=== PATIENT | female | born 1985 | race Caucasian/White ===

== ENCOUNTER 2017-08-08 01:20 | Day surgery (SDC) | payer BC ==
--- NOTE | 2017-08-07 23:07 | HISTORY AND PHYSICAL ---
DATE OF ADMISSION: August 08, 2017 CHIEF COMPLAINT Abnormal bleeding. HISTORY OF PRESENT ILLNESS Patient is a 31-year-old 4, para 1, with abnormal bleeding and postcoital bleeding which began many months ago. She had had some conservative management, but had not changed in the intensity or frequency of the bleeding. Says it has been ongoing for several months. It gradually has worsened over the past several months, aggravated by obesity and relieved by nothing. The patient had a saline infusion sonogram, which they noted a thickened endometrial lining. After discussions of risks and alternatives, desired a diagnostic hysteroscopy with possible polypectomy and fractional dilatation and curettage. MEDICATIONS * Celexa 20 mg. ALLERGIES SKELAXIN. REVIEW OF SYSTEMS GENITOURINARY: Per HPI. GENERAL, SKIN, EYES, EARS, NOSE, MOUTH, NECK, RESPIRATORY, CARDIOVASCULAR, GASTROINTESTINAL, MUSCULOSKELETAL, NEUROLOGIC, and PSYCHIATRIC: All reviewed and noncontributory. PAST SURGICAL HISTORY * ACL repair in 2008. FAMILY HISTORY Mother with hypertension SOCIAL HISTORY She does not drink alcohol. She is an everyday smoker. 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 PHYSICAL EXAMINATION VITAL SIGNS: BP 108/70, temp 99.3, weight 264. CONSTITUTIONAL: Well nourished, overweight female in no distress. SKIN: Without rash or lesions. NECK: Supple without masses. HEART: Regular rate and rhythm. LUNGS: Clear to auscultation bilaterally. ABDOMEN: Soft, nontender, nondistended. Bowel sounds positive. EXTREMITIES: Nontender. No edema. PSYCHIATRIC: Alert and oriented times three. Normal mood and affect. PELVIC: Normal external female genitalia. Well-estrogenized vaginal lining. No abnormal discharge or lesions. Cervix normal appearance. Uterus is 7 x 6 cm. No adnexal masses or tenderness. ASSESSMENT AND PLAN Abnormal bleeding, postcoital bleeding. Plan to perform diagnostic hysteroscopy with possible polypectomy and fractional dilatation and curettage. CYRUSD
[~2017-08-08] VITALS: Ht 170.2 cm; Wt 118.4 kg
[~2017-08-08 01:20] MED LIST: AUG500 PO; CITA-145 PO; IBUP200C71 PO; NAPR220C12 PO; PER PO; TOBROD OU
[2017-08-08 06:03] LABS: PLATELET COUNT, AUTOMATED 248 K/uL (150-450)
[2017-08-08 06:30] VITALS: BP 137/81
[2017-08-08] MEDS ORDERED: METHYLERGONOVINE MAL 0.2MG/ML ONE (06:49)
[2017-08-08] MEDS ORDERED: fentaNYL CITR 100 MCG/2 ML AMP ONE ×2 (07:07→08:09)
[2017-08-08] MEDS ORDERED: DEXAMETHASONE SOD PHOS 10MG/ML ONE (07:08)
[2017-08-08] MEDS ORDERED: ONDANSETRON 4 MG/2 ML VIAL ONE (07:08)
[2017-08-08] MEDS ORDERED: NS 0.9% 20 ML SDV 20 ML ONE (07:08)
[2017-08-08] MEDS ORDERED: LIDOCAINE MPF 1% 5 ML VIAL ONE (07:08)
[2017-08-08] MEDS ORDERED: PROPOFOL EMUL(*) 10MG/ML 20 ML 20 ML ONE (07:08)
[2017-08-08] MEDS ORDERED: LIDOCAINE/SOD BICARB 8.4% SYR ID ONE (07:50)
[2017-08-08] MEDS ORDERED: FAMOTIDINE 20 MG TAB PO ONE (07:50)
[2017-08-08] MEDS ORDERED: NORMOSOL R SOLN(*) 1000 ML BAG 1,000 ML IV PRN (07:50)
[2017-08-08] MEDS ORDERED: HYDROmorphone HCL 2 MG TAB PO ONE (07:50)
[2017-08-08] MEDS ORDERED: MIDAZOLAM 2 MG/2 ML VIAL IVP PRN (07:50)
[2017-08-08] MEDS ORDERED: cefOXitin/DEX(*) 2GM/50ML PREM 50 ML IVPB ONE (07:50)
[2017-08-08] MEDS ORDERED: CELECOXIB 200 MG CAP PO ONE (07:50)
[2017-08-08] MEDS ORDERED: LR(*) 1000 ML BAG 1,000 ML IV ONE (07:54)
[2017-08-08] MEDS ORDERED: METOCLOPRAMIDE 10 MG/2 ML SDV IVP PRN (07:55)
[2017-08-08] MEDS ORDERED: HYDROmorphone HCL 2 MG TAB PO PRN (07:55)
[2017-08-08] MEDS ORDERED: HYDR2TAB4 PO (07:56)
[2017-08-08] MEDS ORDERED: IBUP800T37 PO (07:56)
--- NOTE | 2017-08-08 07:58 | OB/GYN Discharge Summary ---
Discharge Summary Reason for Hosp/Final Diag: (1) Status post hysteroscopic polypectomy Hospital Course & Plan: HSCOPE POLYPECTOMY FRACTIONAL D AND C PERFORMED NO COMPLICATIONS Lates Vital Signs Vital Signs Date Time Temp Pulse Resp B/P (MAP) Pulse Ox O2 Delivery O2 Flow Rate FiO2 08/08/17 06:30 97.4 85 16 137/81 (99) 94 Room Air Weight (Pounds): 261 Result Diagram: 08/08/17 0558 Condition: Improved Discharge: Home, Self Detention Meds Active Scripts Hydromorphone Hcl (HYDROMORPHONE HCL) 2 Mg Tablet, 2-4 MG PO Q4H for PAIN, #20 TAB 0 Refills Prov:MESFIN MEANS MD 08/08/17 Ibuprofen (IBUPROFEN) 800 Mg Tablet, 1 TAB PO Q8H, #30 TAB 0 Refills Take with food every 8 hours. Prov:MESFIN MEANS MD 08/08/17 Reported Medications Naproxen Sodium (ALEVE) 220 Mg Capsule, 440 MG PO HS, CAPSULE 08/06/17 Ibuprofen (IBUPROFEN) 200 Mg Capsule, 1 CAP PO BID, CAPSULE 08/06/17 Citalopram Hydrobromide (CITALOPRAM HBR) 20 Mg Tablet, 20 MG PO QDAY, #5 TAB 08/06/17 Discontinued Reported Medications Oxycodone/Acetaminophen (OXYCODONE/ACETAMINOPHEN 5MG/325 MG) 5 Mg/325 Mg Tab, 1 - 2 TAB PO Q4-6H Y, #20 03/10/12 Tobramycin/Dexamethasone (Tobradex Eye Drops) 5 Ml Drops.susp, 1 - 2 DROP OU Q4- 6H Y 03/10/12 Amoxicillin/Clavulanate K (Augmentin) 500 Mg Tab, 500 MG PO BIDBS, #20 03/10/12 Follow up with: Dr. Means [phone] Follow up in: 2 wks PO Discharge Diet: As Tolerates Discharge Activity: Pelvic Rest Copies to: MESFIN MEANS MD, JOHN MD August 08, 2017 07:58
--- NOTE | 2017-08-08 08:01 | Post Operative Note ---
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
[2017-08-08 09:00] VITALS: BP 111/68
[2017-08-08] MEDS ORDERED: IBUPROFEN 800 MG TAB PO SCH (09:00)
[2017-08-08 09:29] VITALS: BP 106/74
[2017-08-08 09:32] VITALS: BP 118/72
--- NOTE | 2017-08-08 13:12 | BRAGG HYSTEROSCOPY ---
EVENT DATE: August 08, 2017 SURGEON: Shawn Means MD ANESTHESIOLOGIST: Hero Zuniga MD ANESTHESIA: General. PREOPERATIVE DIAGNOSIS Menorrhagia. POSTOPERATIVE DIAGNOSIS Menorrhagia. PROCEDURE PERFORMED Hysteroscopic polypectomy with fractional dilation and curettage. COMPLICATIONS None. FLUIDS 700 mL of Normosol IV. ESTIMATED BLOOD LOSS Minimal. INDICATIONS The patient is a 31-year-old female with worsening bleeding over the past several months. I had discussed risks and alternatives with patient. Patient had agreed to proceed with hysteroscopic polypectomy, fractional D&C. FINDINGS Uterus 7 x 6 cm. No adnexal masses were noted. She had sessile polyps seen with hysteroscopy. PROCEDURE After informed consent was obtained, the patient was taken to the operating room with the IV running, placed in a supine position where general anesthesia was obtained without difficulty. She was then prepped and draped in usual fashion, and her bladder was drained. A side-out speculum was placed into the vagina. Anterior lip of the cervix was grasped with a single-toothed tenaculum. The cervix was curettaged with a Kevorkian curette and a sample passed off of the table. Uterus sounded to 9 cm and then dilated to allow passage of the hysteroscope. Hysteroscope was advanced. Polyps were identified. MyoSure Lite was then placed within the hysteroscopic sheath, activated, and the polyps were then removed. Once this had been performed, the curettage of the endometrial lining was performed, sample passed off the table, and again the hysteroscope was advanced. No further abnormalities were noted. All instruments were removed from the vagina. The tenaculum sites were made hemostatic with the silver nitrate. The remainder of the instruments were removed from the vagina. The patient was taken out of the [facility], awakened from anesthesia, taken to the recovery room in stable condition. [facility]
== END 2017-08-08 08:57 | disposition home or self-care (01) ==
LOC: OR 01:20
PROVIDERS: ATTEND Obstetrics & Gynecology
DX: N92.0 Excessive and frequent menstruation with regular cycle (principal)
CPT/HCPCS: 36415; 58558; 84703; 85025; 88305; J0694; J1100; J2001; J2210; J2250; J2405; J2704; J3010; J7050

== ENCOUNTER 2018-05-19 18:30 | Emergency (ER) | payer BC, OTHER ==
[~2018-05-19 18:30] MED LIST changes: +HYDR2TAB4 PO; +IBUP-136 PO; -IBUP200C71 PO; +IBUP800T37 PO
--- NOTE | 2018-05-19 18:40 | ER Report ---
History and Physical Time Seen By MD: 18:40 Hx. of Stated Complaint: Pt. is 8 weeks . Was spotting lightly last week, was told not to worry about it. The spotting was initally light brown, then turned pink, now she is passing bloody clots with cramping. Pain 10/02. Pt's OBGYN is Dr. Ness HPI/ROS CHIEF COMPLAINT: Vaginal bleeding, 8 weeks HISTORY OF PRESENT ILLNESS: 32-year-old female patient presents to emergency room with complaint of vaginal bleeding. Patient states she is 8 weeks . Patient states that she started having some spotting yesterday, initially started off as brown and then turn to a pinkish color. She states that today she actually passed 2 clots after urinating just prior to coming in. Patient has a history of multiple miscarriages and didn't want to be evaluated for this. She denies having any fevers, chills, nausea, vomiting or diarrhea. She states that she has not taken any medication. REVIEW OF SYSTEMS: Respiratory: No cough, no dyspnea. Cardiovascular: No chest pain, no palpitations. Gastrointestinal: No vomiting, no abdominal pain. Musculoskeletal: No back pain. Allergies: Coded Allergies: metaxalone (Verified Allergy, Severe, HIVES, ANAPHYLAXIS, 05/19/18) Home Meds Active Scripts Hydromorphone Hcl (HYDROMORPHONE HCL) 2 Mg Tablet, 2-4 MG PO Q4H for PAIN, #20 TAB 0 Refills Prov:MESFIN TORRES MD 08/08/17 Ibuprofen (IBUPROFEN) 800 Mg Tablet, 1 TAB PO Q8H, #30 TAB 0 Refills Take with food every 8 hours. Prov:MESFIN TORRES MD 08/08/17 Reported Medications Citalopram Hydrobromide (CITALOPRAM HBR) 20 Mg Tablet, 20 MG PO QDAY, #5 TAB 08/06/17 Past Medical/Surgical History Patient has a past medical history of migraines, hypertension, hyperlipidemia, asthma, irregular menses, depression. Patient has a surgical history of right anterior cruciate ligament repair. Reviewed Nurses Notes: Yes Hx Smoking: Yes (1P Q 3DAYS SINCE AGE 6 ) Smoking Status: Never Smoker, Current: Every Day Smoker Exposure to Second Hand Smoke?: Yes Hx Substance Use Disorder: No Hx Alcohol Use: No Constitutional Vital Sign - Last 24 Hours 05/19/18 05/19/18 05/19/18 05/19/18 18:35 18:36 18:40 18:45 Temp 97.9 Pulse 93 96 Resp 16 B/P (MAP) 162/97 162/97 (118) Pulse Ox 94 94 95 O2 Delivery Room Air 05/19/18 05/19/18 05/19/18 05/19/18 18:50 18:55 19:00 19:01 Pulse 97 99 92 B/P (MAP) 140/90 (107) Pulse Ox 95 94 95 05/19/18 05/19/18 05/19/18 05/19/18 19:05 19:10 19:15 19:20 Pulse 88 98 91 ??? Pulse Ox 94 93 93 05/19/18 05/19/18 05/19/18 05/19/18 19:50 19:55 20:00 20:05 Pulse 93 89 88 86 B/P (MAP) 121/87 (98) Pulse Ox 94 94 93 93 05/19/18 05/19/18 05/19/18 05/19/18 20:10 20:15 20:25 20:30 Pulse 99 85 92 88 B/P (MAP) 137/84 (101) Pulse Ox 92 94 94 94 05/19/18 05/19/18 05/19/18 20:35 20:40 20:45 Pulse 90 99 Pulse Ox 92 94 93 Physical Exam General Appearance: The patient is alert, has no immediate need for airway protection and no current signs of toxicity. Respiratory: Chest is non tender, lungs are clear to auscultation. Cardiac: regular rate and rhythm Gastrointestinal: Abdomen is soft and non tender, no masses, bowel sounds normal. Musculoskeletal: Neck: Neck is supple and non tender. Extremities have full range of motion and are non tender. Skin: No rashes or lesions. DIFFERENTIAL DIAGNOSIS: After history and physical exam differential diagnosis was considered for vaginal bleeding including but not limited to ectopic , menses, miscarriage, and dysfunctional uterine bleeding. Medical Decision Making Data Points Result Diagram: 05/19/18185505/19/181855 Laboratory Hematology Test 05/19/18 18:56 05/19/18 20:25 Red Blood Count 4.86 M/uL (4.17-5.56) Mean Corpuscular Volume 91.8 fL (80.0-96.0) Mean Corpuscular Hemoglobin 30.7 pg (26.0-33.0) Mean Corpuscular Hemoglobin Concent 33.4 g/dL (32.0-36.0) Red Cell Distribution Width 13.8 % (11.5-14.5) Mean Platelet Volume 8.0 fL (7.2-11.1) Neutrophils (%) (Auto) 71.1 % (39.4-72.5) Lymphocytes (%) (Auto) 19.4 % (17.6-49.6) Monocytes (%) (Auto) 5.0 % (4.1-12.4) Eosinophils (%) (Auto) 1.7 % (0.4-6.7) Basophils (%) (Auto) 2.8 % (0.3-1.4) Nucleated RBC Relative Count (auto) 0.1 /100WBC Neutrophils # (Auto) 12.5 K/uL (2.0-7.4) Lymphocytes # (Auto) 3.4 K/uL (1.3-3.6) Monocytes # (Auto) 0.9 K/uL (0.3-1.0) Eosinophils # (Auto) 0.3 K/uL (0.0-0.5) Basophils # (Auto) 0.5 K/uL (0.0-0.1) Nucleated RBC Absolute Count (auto) 0.01 K/uL Prothrombin Time 12.1 seconds (12.0-14.4) Prothromb Time International Ratio 0.90 Activated Partial Thromboplast Time 27 seconds (23-35) Sodium Level 139 mmol/L (137-145) Potassium Level 4.0 mmol/L (3.5-5.0) Chloride Level 106 mmol/L (98-107) Carbon Dioxide Level 21 mmol/L (22-31) Blood Urea Nitrogen 13 mg/dl (7-18) Creatinine 0.70 mg/dl (0.52-1.04) Glomerular Filtration Rate Calc > 60.0 Random Glucose 105 mg/dl (75-110) Calcium Level 9.5 mg/dl (8.4-10.2) Total Bilirubin 0.1 mg/dl (0.2-1.3) Aspartate Amino Transf (AST/SGOT) 22 U/L (0-35) Alanine Aminotransferase (ALT/SGPT) 25 U/L (0-56) Alkaline Phosphatase 50 U/L (0-126) Total Protein 7.4 g/dl (6.3-8.2) Albumin 4.4 g/dl (3.5-5.0) Human Chorionic Gonadotropin, Quant 98879 mIU/ml Urine Color Yellow Urine Clarity Slightly-cloudy Urine pH 5.0 pH (4.8-9.5) Urine Specific [place] 1.012 Urine Protein Negative mg/dL (NEGATIVE) Urine Glucose (UA) Negative mg/dL (NEGATIVE) Urine Ketones Negative mg/dL (NEGATIVE) Urine Blood Large (NEGATIVE) Urine Nitrite Negative (NEGATIVE) Urine Bilirubin Negative (NEGATIVE) Urine Urobilinogen Negative mg/dL (0.2-1.9) Urine Leukocyte Esterase Small (NEGATIVE) Urine RBC 1 /HPF (0-2/HPF) Urine WBC 9 /HPF (0-5/HPF) Urine Squamous Epithelial Cells Many /LPF (</=FEW) Urine Bacteria Few /HPF (NONE-FEW) Urine Mucus None /HPF (NONE-FEW) Chemistry Test 05/19/18 18:56 05/19/18 20:25 White Blood Count 17.5 k/uL (4.5-11.0) Red Blood Count 4.86 M/uL (4.17-5.56) Hemoglobin 14.9 g/dL (12.0-16.0) Hematocrit 44.6 % (34.0-47.0) Mean Corpuscular Volume 91.8 fL (80.0-96.0) Mean Corpuscular Hemoglobin 30.7 pg (26.0-33.0) Mean Corpuscular Hemoglobin Concent 33.4 g/dL (32.0-36.0) Red Cell Distribution Width 13.8 % (11.5-14.5) Platelet Count 297 K/uL (150-450) Mean Platelet Volume 8.0 fL (7.2-11.1) Neutrophils (%) (Auto) 71.1 % (39.4-72.5) Lymphocytes (%) (Auto) 19.4 % (17.6-49.6) Monocytes (%) (Auto) 5.0 % (4.1-12.4) Eosinophils (%) (Auto) 1.7 % (0.4-6.7) Basophils (%) (Auto) 2.8 % (0.3-1.4) Nucleated RBC Relative Count (auto) 0.1 /100WBC Neutrophils # (Auto) 12.5 K/uL (2.0-7.4) Lymphocytes # (Auto) 3.4 K/uL (1.3-3.6) Monocytes # (Auto) 0.9 K/uL (0.3-1.0) Eosinophils # (Auto) 0.3 K/uL (0.0-0.5) Basophils # (Auto) 0.5 K/uL (0.0-0.1) Nucleated RBC Absolute Count (auto) 0.01 K/uL Prothrombin Time 12.1 seconds (12.0-14.4) Prothromb Time International Ratio 0.90 Activated Partial Thromboplast Time 27 seconds (23-35) Glomerular Filtration Rate Calc > 60.0 Calcium Level 9.5 mg/dl (8.4-10.2) Total Bilirubin 0.1 mg/dl (0.2-1.3) Aspartate Amino Transf (AST/SGOT) 22 U/L (0-35) Alanine Aminotransferase (ALT/SGPT) 25 U/L (0-56) Alkaline Phosphatase 50 U/L (0-126) Total Protein 7.4 g/dl (6.3-8.2) Albumin 4.4 g/dl (3.5-5.0) Human Chorionic Gonadotropin, Quant 19059 mIU/ml Urine Color Yellow Urine Clarity Slightly-cloudy Urine pH 5.0 pH (4.8-9.5) Urine Specific [place] 1.012 Urine Protein Negative mg/dL (NEGATIVE) Urine Glucose (UA) Negative mg/dL (NEGATIVE) Urine Ketones Negative mg/dL (NEGATIVE) Urine Blood Large (NEGATIVE) Urine Nitrite Negative (NEGATIVE) Urine Bilirubin Negative (NEGATIVE) Urine Urobilinogen Negative mg/dL (0.2-1.9) Urine Leukocyte Esterase Small (NEGATIVE) Urine RBC 1 /HPF (0-2/HPF) Urine WBC 9 /HPF (0-5/HPF) Urine Squamous Epithelial Cells Many /LPF (</=FEW) Urine Bacteria Few /HPF (NONE-FEW) Urine Mucus None /HPF (NONE-FEW) Coagulation Test 05/19/18 18:56 Prothrombin Time 12.1 seconds Prothromb Time International Ratio 0.90 Activated Partial Thromboplast Time 27 seconds Urinalysis Test 05/19/18 20:25 Urine Color Yellow Urine Clarity Slightly-cloudy Urine pH 5.0 pH (4.8-9.5) Urine Specific [place] 1.012 Urine Protein Negative mg/dL (NEGATIVE) Urine Glucose (UA) Negative mg/dL (NEGATIVE) Urine Ketones Negative mg/dL (NEGATIVE) Urine Blood Large (NEGATIVE) Urine Nitrite Negative (NEGATIVE) Urine Bilirubin Negative (NEGATIVE) Urine Urobilinogen Negative mg/dL (0.2-1.9) Urine Leukocyte Esterase Small (NEGATIVE) Urine RBC 1 /HPF (0-2/HPF) Urine WBC 9 /HPF (0-5/HPF) Urine Squamous Epithelial Cells Many /LPF (</=FEW) Urine Bacteria Few /HPF (NONE-FEW) Urine Mucus None /HPF (NONE-FEW) EKG/Imaging Imaging Examination: 1st trimester obstetric ultrasound Comparison: None Available History: Vaginal bleeding. LMP: 03/24/2018 Gestational age based on LMP: 8 weeks 0 days YENNY based on LMP: 12/29/2018 Findings: Standard endovaginal obstetric ultrasound with color flow and spectral analysis. Uterus: Single intrauterine gestational sac containing a single embryo and yolk sac. No perigestational hemorrhage. The cervix is closed. Based on a crown-rump length of 20.28 mm, gestational age is 8 weeks 5 days for an estimated delivery date of 12/24/2018. heart rate is 174 beats per minute. Adnexa: Right ovary: 3.7 x 2.2 x 2.5 cm. Morphologically normal ovary with no suspicious ovarian or adnexal mass. Normal waveforms on Doppler interrogation. Left ovary: Not visualized. Free fluid: None Urinary bladder: Empty IMPRESSION: 1. Single living intrauterine gestation. Gestational age based on sonographic criteria is 8 weeks 5 days for an estimated delivery date of 12/24/2018. 2. Unremarkable right ovary. Left ovary is not visualized. 3. No sonographic findings of acute disease. 4. Anatomic survey at 20 weeks gestation is recommended. ==ACOG recommends that ultrasound established dates should take preference over menstrual dates when the discrepancy between ultrasound dating and LMP is: - Greater than 5 days before 9 weeks gestation - Greater than 7 days from 9 weeks to 15 6/7 weeks - Greater than 10 days from 16 weeks to 21 6/7 weeks - Greater than 14 days from 22 weeks to 27 6/7 weeks - Greater than 21 days after 28 weeks Because of the risk of redating a small fetus that may be growth restricted, management decisions based on third-trimester ultrasound alone are especially problematic; they need to be guided by careful consideration of the entire clinical picture. http://www.acog.org/Ubwctikdx-Stf-Db blications/Committee-Opinions/Vfcqynwca-bc-Egbdjfmkb-Practice/Lobypl-fdq-Fdrgbcy qfd-Vrl-Tngm Report Dictated By: Lucho Mari MD at 05/19/2018 8:08 PM Report E-Signed By: Lucho Mari MD at 05/19/2018 8:12 PM ED Course/Re-evaluation ED Course Patient was admitted to exam room, history and physical were obtained. Differential diagnoses were considered. On examination lungs are clear, heart is regular, abdomen is soft with slight tenderness to the right lower quadrant. A CBC, CMP, urinalysis, quantitative hCG were done. Patient did have a quantitative hCG of 44,000, CBC showed an elevated white count of 17,000. There are no obvious signs of urinary tract infection, patient had no fever. She did have 7 white blood cells per high-power field with urine. We will go ahead and culture the urine and then will treat accordingly. An ultrasound was performed. The results were unremarkable. She did have a single live intrauterine with a heart rate of 177. With the results being unremarkable I will go ahead and discharge patient this time. 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 Patient and her significant other verbalized understanding and agreement with plan. Decision to Disposition Date: May 19, 2018 Decision to Disposition Time: 20:40 Depart Departure Latest Vital Signs Vital Signs Date Time Temp Pulse Resp B/P (MAP) Pulse Ox O2 Delivery O2 Flow Rate FiO2 05/19/18 20:45 93 05/19/18 20:40 99 05/19/18 20:30 137/84 (101) 05/19/18 18:35 97.9 16 Room Air Impression: Primary Impression: Vaginal bleeding affecting early Condition: Improved Disposition: HOME OR SELF-CARE Referrals: MARCOS ANGEL APRN (PCP) Patient Instructions: First Trimester Vaginal Bleed (ED) Additional Instructions: Your looks good. Get plenty of rest. Take your vitamins daily. Return to the ER if condition worsens. Follow up with Dr. Marie in the next week. Make sure that you are getting plenty of fluids, especially when you are working. JAGJIT ROBERTS May 19, 2018 18:40
[2018-05-19] MEDS ORDERED: NS(*) 0.9% 1000 ML BAG 1,000 ML IV ONE (18:46)
[2018-05-19 19:09] LABS: PLATELET COUNT, AUTOMATED 297 K/uL (150-450)
[2018-05-19 19:17] LABS: INR 0.9
--- NOTE | 2018-05-19 20:16 | RADIOLOGY IMAGING REPORT ---
FACILITY: [facility] PATIENT NAME: Nieves Adrian : 1985 MR: [id number] V: [id number] EXAM DATE: ORDERING PHYSICIAN: JAGJIT ROBERTS TECHNOLOGIST: Location: [facility] [place] Patient: Nieves Adrian : 1985 Visit/Account:[id number] Date of Sevice: 05/19/2018 Examination: 1st trimester obstetric ultrasound Comparison: None Available History: Vaginal bleeding. LMP: 03/24/2018 Gestational age based on LMP: 8 weeks 0 days YENNY based on LMP: 12/29/2018 Findings: Standard endovaginal obstetric ultrasound with color flow and spectral analysis. Uterus: Single intrauterine gestational sac containing a single embryo and yolk sac. No perigestatio nal hemorrhage. The cervix is closed. Based on a crown-rump length of 20.28 mm, gestational age is 8 weeks 5 days for an estimated delivery date of 12/24/2018. heart rate is 174 beats per minute. Adnexa: Right ovary: 3.7 x 2.2 x 2.5 cm. Morphologically normal ovary with no suspicious ovarian or adnexal mass. Normal waveforms on Doppler interrogation. Left ovary: Not visualized. Free fluid: None Urinary bladder: Empty IMPRESSION: 1. Single living intrauterine gestation. Gestational age based on sonographic criteria is 8 weeks 5 days for an estimated delivery date of 12/24/2018. 2. Unremarkable right ovary. Left ovary is not visualized. 3. No sonographic findings of acute disease. 4. Anatomic survey at 20 weeks gestation is recommended. ==ACOG recommends that ultrasound established dates should take preference over menstrual dates when the discrepancy between ultrasound dating and LMP is: - Greater than 5 days before 9 weeks gestation - Greater than 7 days from 9 weeks to 15 6/7 weeks - Greater than 10 days from 16 weeks to 21 6/7 weeks - Greater than 14 days from 22 weeks to 27 6/7 weeks - Greater than 21 days after 28 weeks Because of the risk of redating a small fetus that may be growth restricted, management decisions bas ed on third-trimester ultrasound alone are especially problematic; they need to be guided by careful consideration of the entire clinical picture. http://www.acog.org/Tdxbhqply-Liz-Idycyeeyobcv/Committee-Opinions/Bxfcotugu-tm-Zpzvddrtb-Practice/Met tbc-ofs-Kgucwnaiyw-Due-Date Report Dictated By: Lucho Mari MD at 05/19/2018 8:08 PM Report E-Signed By: Lucho Mari MD at 05/19/2018 8:12 PM WSN:[email or web address] [id number]
[2018-05-19 20:30] VITALS: BP 137/84
== END 2018-05-19 20:51 | disposition home or self-care (01) ==
LOC: ER 18:41
DX: O20.9 Hemorrhage in early pregnancy, unspecified (principal); Z3A.08 8 weeks gestation of pregnancy
CPT/HCPCS: 76817; 81001; 84702; 85025; 85610; 85730; 87088; 96360; 96361; 99284; J7030; 82040; 82247; 82310; 82374; 82435; 82565; 82947; 84075; 84132; 84155; 84295; 84450; 84460; 84520

== ENCOUNTER → 2018-05-20 | Outpatient (CLI) | payer OTHER | LOC: RESP 16:08 | PROVIDERS: ATTEND Nurse Practitioner Family | DX: G47.33 Obstructive sleep apnea (adult) (pediatric) (principal) ==

== ENCOUNTER 2018-06-01 16:51 | Emergency (ER) | payer OTHER ==
--- NOTE | 2018-06-01 17:03 | ER Report ---
History and Physical Time Seen By : 17:02 HPI/ROS 32 Y/O at 10 weeks by US presents to the ED with one episode of vaginal bleeding one hour [employer]. No cramping or pain. No dysuria. No trauma. Had spotting at 8 weeks gestation. Has a documented IUP. Bleeding has subsided Allergies: Coded Allergies: metaxalone (Verified Allergy, Severe, HIVES, ANAPHYLAXIS, 06/01/18) Home Meds Reported Medications Citalopram Hydrobromide (CITALOPRAM HBR) 20 Mg Tablet, 20 MG PO QDAY, #5 TAB 08/06/17 Discontinued Scripts Hydromorphone Hcl (HYDROMORPHONE HCL) 2 Mg Tablet, 2-4 MG PO Q4H for PAIN, #20 TAB 0 Refills Prov:MESFIN TORRES MD 08/08/17 Ibuprofen (IBUPROFEN) 800 Mg Tablet, 1 TAB PO Q8H, #30 TAB 0 Refills Take with food every 8 hours. Prov:MESFIN TORRES MD 08/08/17 Reviewed Nurses Notes: Yes Old Medical Records Reviewed: Yes Hx Smoking: Yes (1P Q 3DAYS SINCE AGE 6 ) Smoking Status: Never Smoker, Current: Every Day Smoker Exposure to Second Hand Smoke?: Yes Hx Substance Use Disorder: No Hx Alcohol Use: No Constitutional Vital Sign - Last 24 Hours 06/01/18 16:55 Temp 97.6 Pulse 100 Resp 18 B/P (MAP) 150/78 Pulse Ox 95 O2 Delivery Room Air Physical Exam General Appearance: The patient is alert, has no immediate need for airway protection and no current signs of toxicity. Eyes: Pupils equal and round no injection. Respiratory: Chest is non tender, lungs are clear to auscultation. Cardiac: regular rate and rhythm Gastrointestinal: Abdomen is soft and non tender, no masses, bowel sounds normal. : scant old blood in the vaginal vault, cervix closed Medical Decision Making Data Points Laboratory Hematology Test 06/01/18 16:56 06/01/18 18:10 Urine Color Yellow Urine Clarity Cloudy Urine pH 5.0 pH (4.8-9.5) Urine Specific [place] 1.011 Urine Protein 30 mg/dL (NEGATIVE) Urine Glucose (UA) Negative mg/dL (NEGATIVE) Urine Ketones Negative mg/dL (NEGATIVE) Urine Blood Large (NEGATIVE) Urine Nitrite Negative (NEGATIVE) Urine Bilirubin Negative (NEGATIVE) Urine Urobilinogen Negative mg/dL (0.2-1.9) Urine Leukocyte Esterase Small (NEGATIVE) Urine RBC 1765 /HPF (0-2/HPF) Urine WBC 38 /HPF (0-5/HPF) Urine Squamous Epithelial Cells Many /LPF (</=FEW) Urine Bacteria Moderate /HPF (NONE-FEW) Urine Mucus None /HPF (NONE-FEW) Chemistry Test 06/01/18 16:56 06/01/18 18:10 Urine Color Yellow Urine Clarity Cloudy Urine pH 5.0 pH (4.8-9.5) Urine Specific [place] 1.011 Urine Protein 30 mg/dL (NEGATIVE) Urine Glucose (UA) Negative mg/dL (NEGATIVE) Urine Ketones Negative mg/dL (NEGATIVE) Urine Blood Large (NEGATIVE) Urine Nitrite Negative (NEGATIVE) Urine Bilirubin Negative (NEGATIVE) Urine Urobilinogen Negative mg/dL (0.2-1.9) Urine Leukocyte Esterase Small (NEGATIVE) Urine RBC 1765 /HPF (0-2/HPF) Urine WBC 38 /HPF (0-5/HPF) Urine Squamous Epithelial Cells Many /LPF (</=FEW) Urine Bacteria Moderate /HPF (NONE-FEW) Urine Mucus None /HPF (NONE-FEW) Urinalysis Test 06/01/18 16:56 Urine Color Yellow Urine Clarity Cloudy Urine pH 5.0 pH (4.8-9.5) Urine Specific [place] 1.011 Urine Protein 30 mg/dL (NEGATIVE) Urine Glucose (UA) Negative mg/dL (NEGATIVE) Urine Ketones Negative mg/dL (NEGATIVE) Urine Blood Large (NEGATIVE) Urine Nitrite Negative (NEGATIVE) Urine Bilirubin Negative (NEGATIVE) Urine Urobilinogen Negative mg/dL (0.2-1.9) Urine Leukocyte Esterase Small (NEGATIVE) Urine RBC 1765 /HPF (0-2/HPF) Urine WBC 38 /HPF (0-5/HPF) Urine Squamous Epithelial Cells Many /LPF (</=FEW) Urine Bacteria Moderate /HPF (NONE-FEW) Urine Mucus None /HPF (NONE-FEW) ED Course/Re-evaluation ED Course Documented IUP. No UTI. No abdominal pain or TTP. No active bleeding. Os closed. Will follow up with OB this week. Decision to Disposition Date: Jun 01, 2018 Decision to Disposition Time: 18:42 Depart Departure Latest Vital Signs Vital Signs Date Time Temp Pulse Resp B/P (MAP) Pulse Ox O2 Delivery O2 Flow Rate FiO2 06/01/18 16:55 97.6 100 18 150/78 95 Room Air Impression: Primary Impression: Vaginal bleeding affecting early Condition: Improved Disposition: HOME OR SELF-CARE Referrals: ADDIE VIDAL MD (PCP) Patient Instructions: Threatened Miscarriage (ED) ELANA WINN MD Jun 01, 2018 17:02
[2018-06-01 18:00] VITALS: BP 135/79
== END 2018-06-01 19:00 | disposition home or self-care (01) ==
LOC: ER 17:03
DX: O20.9 Hemorrhage in early pregnancy, unspecified (principal); Z3A.10 10 weeks gestation of pregnancy
CPT/HCPCS: 36415; 81001; 84702; 99282

== ENCOUNTER 2018-06-11 10:29 | Emergency (ER) | payer OTHER ==
[2018-06-11] MEDS ORDERED: PREN-127 PO (10:55)
--- NOTE | 2018-06-11 10:57 | ER Report ---
History and Physical Time Seen By MD: 10:54 Hx. of Stated Complaint: "i lost a lot of fluid last night, that soaked my pants" unknown color, 11 weeks . rh negative. r side cramping HPI/ROS CHIEF COMPLAINT: "Leakage of fluid, possible miscarriage" HISTORY OF PRESENT ILLNESS: Patient is a 32-year-old female who is a at approximately 11 weeks gestation by 1st trimester ultrasound who presents to the emergency department complaining of leakage of fluid that began last night. She is unable to state whether the fluid was clear, purulent or bloody. She apparently did speak with the on-call BRICKLAYER APPRENTICE yesterday and was instructed to come to the emergency Department however she waited until today. I did speak francisco pemberton with Dr. Yoo who is currently in the midst of a delivery and stated that he initially was going to see the patient in clinic however he currently has the delivery and gave her the option of coming to the emergency department for evaluation or waiting until after his delivery was completed. Keily Yoo states that based on the patient's bleeding. Nitrazine testing would be futile he recommends a 1st trimester ultrasound to determine viability of current gestation. Patient is admitting some mild right lower abdominal pain. This pain is described as intermittent and cramping. She states that she has been having intermittent spotting throughout this . She denies any fevers or chills. She denies chest pain or shortness of breath. REVIEW OF SYSTEMS: Constitutional: No fever, no chills. Eyes: No discharge. ENT: No sore throat. Cardiovascular: No chest pain, no palpitations. Respiratory: No cough, no shortness of breath. Gastrointestinal: Right lower pelvic/abdominal pain Genitourinary: No hematuria. No dysuria complaints of "leakage of fluid. Musculoskeletal: No back pain. Skin: No rashes. Neurological: No headache. Allergies: Coded Allergies: metaxalone (Verified Allergy, Severe, HIVES, ANAPHYLAXIS, 06/01/18) Home Meds Reported Medications Vits W-Ca,Fe,Fa(<1MG) ( VITAMINS) 1 Each Tablet, 1 EACH PO DAILY, TAB 06/11/18 Citalopram Hydrobromide (CITALOPRAM HBR) 20 Mg Tablet, 20 MG PO QDAY, #5 TAB 08/06/17 Past Medical/Surgical History Multiple miscarriages Hx Smoking: Yes (1P Q 3DAYS SINCE AGE 6 ) Smoking Status: Never Smoker, Current: Every Day Smoker Exposure to Second Hand Smoke?: Yes Hx Substance Use Disorder: No Hx Alcohol Use: No Constitutional Vital Sign - Last 24 Hours 06/11/18 06/11/18 06/11/18 06/11/18 10:29 10:44 10:45 10:47 Temp 98.5 Pulse ? 101 Resp 18 B/P (MAP) 137/88 137/88 (104) Pulse Ox 92 O2 Delivery Room Air 06/11/18 06/11/18 06/11/18 06/11/18 10:59 11:14 11:29 11:44 Pulse 87 98 88 ??? Resp 9 15 11 Pulse Ox 92 91 92 06/11/18 06/11/18 06/11/18 06/11/18 11:59 12:14 12:19 12:34 Pulse ??? 97 85 94 Resp 12 19 21 Pulse Ox 92 91 06/11/18 06/11/18 06/11/18 06/11/18 12:49 13:04 13:19 13:34 Pulse 93 81 ? Resp 18 18 06/11/18 06/11/18 13:35 13:49 Pulse 83 B/P (MAP) 135/87 (103) Pulse Ox 94 Physical Exam General/Constitutional: Patient is awake, alert, nontoxic and in no acute respiratory distress. Cardiovascular: Heart is regular rate and rhythm without audible murmurs, rubs or gallops. Pulmonary: Lungs are clear to auscultation bilaterally. There are no wheezes, rales, or rhonchi. Chest rise is symmetrical Abdomen: Soft, nontender, no guarding or peritoneal signs. Extremities: No gross deformities, No peripheral cyanosis. Able to move all 4 extremities. Neuro: Alert and oriented X3, Cranial nerves 2 thru 12 are intact and symmetrical. Patient has normal gait. dry and well perfused. Medical Decision Making Data Points Result Diagram: 06/11/18 1108 06/11/18 1108 Laboratory Hematology Test 06/11/18 11:08 06/11/18 11:32 Red Blood Count 4.36 M/uL (4.17-5.56) Mean Corpuscular Volume 92.2 fL (80.0-96.0) Mean Corpuscular Hemoglobin 30.9 pg (26.0-33.0) Mean Corpuscular Hemoglobin Concent 33.5 g/dL (32.0-36.0) Red Cell Distribution Width 13.5 % (11.5-14.5) Mean Platelet Volume 7.7 fL (7.2-11.1) Neutrophils (%) (Auto) 74.1 % (39.4-72.5) Lymphocytes (%) (Auto) 17.2 % (17.6-49.6) Monocytes (%) (Auto) 6.9 % (4.1-12.4) Eosinophils (%) (Auto) 0.9 % (0.4-6.7) Basophils (%) (Auto) 0.9 % (0.3-1.4) Nucleated RBC Relative Count (auto) 0.0 /100WBC Neutrophils # (Auto) 11.7 K/uL (2.0-7.4) Lymphocytes # (Auto) 2.7 K/uL (1.3-3.6) Monocytes # (Auto) 1.1 K/uL (0.3-1.0) Eosinophils # (Auto) 0.1 K/uL (0.0-0.5) Basophils # (Auto) 0.1 K/uL (0.0-0.1) Nucleated RBC Absolute Count (auto) 0.01 K/uL Sodium Level 136 mmol/L (137-145) Potassium Level 3.9 mmol/L (3.5-5.0) Chloride Level 107 mmol/L (98-107) Carbon Dioxide Level 22 mmol/L (22-31) Blood Urea Nitrogen 10 mg/dl (7-18) Creatinine 0.50 mg/dl (0.52-1.04) Glomerular Filtration Rate Calc > 60.0 Random Glucose 85 mg/dl (75-110) Calcium Level 8.7 mg/dl (8.4-10.2) Total Bilirubin 0.2 mg/dl (0.2-1.3) Aspartate Amino Transf (AST/SGOT) 23 U/L (0-35) Alanine Aminotransferase (ALT/SGPT) 24 U/L (0-56) Alkaline Phosphatase 51 U/L (0-126) Total Protein 6.8 g/dl (6.3-8.2) Albumin 3.9 g/dl (3.5-5.0) Human Chorionic Gonadotropin, Quant 92932 mIU/ml Urine Color Yellow Urine Clarity Clear Urine pH 7.0 pH (4.8-9.5) Urine Specific [place] 1.017 Urine Protein Negative mg/dL (NEGATIVE) Urine Glucose (UA) Negative mg/dL (NEGATIVE) Urine Ketones Negative mg/dL (NEGATIVE) Urine Blood Small (NEGATIVE) Urine Nitrite Negative (NEGATIVE) Urine Bilirubin Negative (NEGATIVE) Urine Urobilinogen Negative mg/dL (0.2-1.9) Urine Leukocyte Esterase Trace (NEGATIVE) Urine RBC 1 /HPF (0-2/HPF) Urine WBC 2 /HPF (0-5/HPF) Urine Squamous Epithelial Cells Many /LPF (</=FEW) Urine Bacteria Negative /HPF (NONE-FEW) Urine Mucus None /HPF (NONE-FEW) Chemistry Test 06/11/18 11:08 06/11/18 11:32 White Blood Count 15.8 k/uL (4.5-11.0) Red Blood Count 4.36 M/uL (4.17-5.56) Hemoglobin 13.5 g/dL (12.0-16.0) Hematocrit 40.2 % (34.0-47.0) Mean Corpuscular Volume 92.2 fL (80.0-96.0) Mean Corpuscular Hemoglobin 30.9 pg (26.0-33.0) Mean Corpuscular Hemoglobin Concent 33.5 g/dL (32.0-36.0) Red Cell Distribution Width 13.5 % (11.5-14.5) Platelet Count 232 K/uL (150-450) Mean Platelet Volume 7.7 fL (7.2-11.1) Neutrophils (%) (Auto) 74.1 % (39.4-72.5) Lymphocytes (%) (Auto) 17.2 % (17.6-49.6) Monocytes (%) (Auto) 6.9 % (4.1-12.4) Eosinophils (%) (Auto) 0.9 % (0.4-6.7) Basophils (%) (Auto) 0.9 % (0.3-1.4) Nucleated RBC Relative Count (auto) 0.0 /100WBC Neutrophils # (Auto) 11.7 K/uL (2.0-7.4) Lymphocytes # (Auto) 2.7 K/uL (1.3-3.6) Monocytes # (Auto) 1.1 K/uL (0.3-1.0) Eosinophils # (Auto) 0.1 K/uL (0.0-0.5) Basophils # (Auto) 0.1 K/uL (0.0-0.1) Nucleated RBC Absolute Count (auto) 0.01 K/uL Glomerular Filtration Rate Calc > 60.0 Calcium Level 8.7 mg/dl (8.4-10.2) Total Bilirubin 0.2 mg/dl (0.2-1.3) Aspartate Amino Transf (AST/SGOT) 23 U/L (0-35) Alanine Aminotransferase (ALT/SGPT) 24 U/L (0-56) Alkaline Phosphatase 51 U/L (0-126) Total Protein 6.8 g/dl (6.3-8.2) Albumin 3.9 g/dl (3.5-5.0) Human Chorionic Gonadotropin, Quant 92187 mIU/ml Urine Color Yellow Urine Clarity Clear Urine pH 7.0 pH (4.8-9.5) Urine Specific [place] 1.017 Urine Protein Negative mg/dL (NEGATIVE) Urine Glucose (UA) Negative mg/dL (NEGATIVE) Urine Ketones Negative mg/dL (NEGATIVE) Urine Blood Small (NEGATIVE) Urine Nitrite Negative (NEGATIVE) Urine Bilirubin Negative (NEGATIVE) Urine Urobilinogen Negative mg/dL (0.2-1.9) Urine Leukocyte Esterase Trace (NEGATIVE) Urine RBC 1 /HPF (0-2/HPF) Urine WBC 2 /HPF (0-5/HPF) Urine Squamous Epithelial Cells Many /LPF (</=FEW) Urine Bacteria Negative /HPF (NONE-FEW) Urine Mucus None /HPF (NONE-FEW) Urinalysis Test 06/11/18 11:32 Urine Color Yellow Urine Clarity Clear Urine pH 7.0 pH (4.8-9.5) Urine Specific [place] 1.017 Urine Protein Negative mg/dL (NEGATIVE) Urine Glucose (UA) Negative mg/dL (NEGATIVE) Urine Ketones Negative mg/dL (NEGATIVE) Urine Blood Small (NEGATIVE) Urine Nitrite Negative (NEGATIVE) Urine Bilirubin Negative (NEGATIVE) Urine Urobilinogen Negative mg/dL (0.2-1.9) Urine Leukocyte Esterase Trace (NEGATIVE) Urine RBC 1 /HPF (0-2/HPF) Urine WBC 2 /HPF (0-5/HPF) Urine Squamous Epithelial Cells Many /LPF (</=FEW) Urine Bacteria Negative /HPF (NONE-FEW) Urine Mucus None /HPF (NONE-FEW) EKG/Imaging Imaging FACILITY: PATIENT NAME: Nieves Adrian : 1985 MR: [id number] V: [id number] EXAM DATE: ORDERING PHYSICIAN: MANUEL ACUÑA TECHNOLOGIST: Location: [facility] Patient: Nieves Adrian : 1985 Visit/Account:[id number] Date of Sevice: 06/11/2018 Transvaginal OB Ultrasound HISTORY: VAGINAL BLEEDING and loss of fluid COMPARISON: May 19, 2018 TECHNIQUE: Transvaginal imaging was performed for detailed assessment of the uterus, , and ovaries. FINDINGS: Gestational sac: Single, intrauterine and appears partially collapsed. There is only a trace amount of fluid within the gestational sac and some fluid is noted within the cervix Embryo: A single embryo was visualized Embryonic cardiac activity: 157 bpm Estimated gestational age by LMP of not documented: Ultrasound age: 11 weeks and two days by crown-rump length Subchorionic hemorrhage: None visualized. Uterus: Gravid, otherwise unremarkable. Maternal ovaries: Not seen Adnexa: Not seen Free pelvic fluid: None. IMPRESSION: There is a single intrauterine gestation with cardiac activity of 157 bpm. Estimated gestational age by crown-rump length is 11 weeks and two days. The gestational sac appears partially collapsed with only a trace amount of fluid noted within the sac and some fluid noted within the cervix. Results were called to Teddy Kapoor at 06/11/2018 12:43 PM. Report Dictated By: Dora Browne MD at 06/11/2018 12:30 PM Report E-Signed By: Dora Browne MD at 06/11/2018 12:43 PM WSN:[email or web address] ED Course/Re-evaluation ED Course Plan at this time will be surgical ultrasound to confirm gestational viability. Also type and screen for possible Rhogam administration. 06/11/2018 12:52:45 pm ultrasound findings showed intrauterine with heart rate of 157 bpm however discussed concerning is the near absence of any amniotic fluid surrounding the fetus. Case was discussed with Dr. Yoo who is on-call for Dr. Vidal. Case discussed feel that this is certainly consistent with an inevitable miscarriage. Patient is A- we'll give exam. I will discharge home with instructions for inevitable miscarriage and precautions to return for increasing pain or substantial vaginal bleeding or any infectious type symptoms. Decision to Disposition Date: Jun 11, 2018 Decision to Disposition Time: 13:15 Depart Departure Latest Vital Signs Vital Signs Date Time Temp Pulse Resp B/P (MAP) Pulse Ox O2 Delivery O2 Flow Rate FiO2 06/11/18 13:49 83 94 06/11/18 13:35 135/87 (103) 06/11/18 13:04 18 06/11/18 10:45 98.5 Room Air Impression: Primary Impression: Inevitable Condition: Condition Unchanged Disposition: HOME OR SELF-CARE Referrals: ADDIE VIDAL MD (PCP) call to schedule a follow up show horse driver appointment in the next 1-2 weeks Patient Instructions: Rho(D) Immune Globulin (By injection), Threatened Miscarriage (ED) Additional Instructions: Return to the emergency department at any time if he develops fever, if you have severe abdominal and/or pelvic pain or if you have vaginal bleeding greater than 1 pad per hour greater than 3 hours. MANUEL ACUÑA MD Jun 11, 2018 10:57
[2018-06-11 11:17] LABS: PLATELET COUNT, AUTOMATED 232 K/uL (150-450)
--- NOTE | 2018-06-11 12:47 | RADIOLOGY IMAGING REPORT ---
FACILITY: [facility] PATIENT NAME: Nieves Adrian : 1985 MR: [id number] V: [id number] EXAM DATE: ORDERING PHYSICIAN: MANUEL ACUÑA TECHNOLOGIST: Location: [facility] Patient: Nieves Adrian : 1985 Visit/Account:[id number] Date of Sevice: 06/11/2018 Transvaginal OB Ultrasound HISTORY: VAGINAL BLEEDING and loss of fluid COMPARISON: May 19, 2018 TECHNIQUE: Transvaginal imaging was performed for detailed assessment of the uterus, , and o varies. FINDINGS: Gestational sac: Single, intrauterine and appears partially collapsed. There is only a trace amount of fluid within the gestational sac and some fluid is noted within the cervix Embryo: A single embryo was visualized Embryonic cardiac activity: 157 bpm Estimated gestational age by LMP of not documented: Ultrasound age: 11 weeks and two days by crown-rump length Subchorionic hemorrhage: None visualized. Uterus: Gravid, otherwise unremarkable. Maternal ovaries: Not seen Adnexa: Not seen Free pelvic fluid: None. IMPRESSION: There is a single intrauterine gestation with cardiac activity of 157 bpm. Estimated gestation al age by crown-rump length is 11 weeks and two days. The gestational sac appears partially collapsed with only a trace amount of fluid noted within the sa c and some fluid noted within the cervix. Results were called to Teddy Kapoor at 06/11/2018 12:43 PM. Report Dictated By: Dora Browne MD at 06/11/2018 12:30 PM Report E-Signed By: Dora Browne MD at 06/11/2018 12:43 PM WSN:[email or web address]
[2018-06-11 13:35] VITALS: BP 135/87
== END 2018-06-11 14:00 | disposition home or self-care (01) ==
LOC: ER 10:53
DX: O03.9 Complete or unspecified spontaneous abortion without complication (principal); Z3A.11 11 weeks gestation of pregnancy
CPT/HCPCS: 76817; 81001; 84702; 85025; 85461; 86850; 86900; 86901; 99284; J2791; 82040; 82247; 82310; 82374; 82435; 82565; 82947; 84075; 84132; 84155; 84295; 84450; 84460; 84520